=== PATIENT | male | born 1995 | race Two or more races ===

== ENCOUNTER 2017-10-31 09:03 | Emergency (ER) | payer MEDICAID ==
[~2017-10-31] VITALS: Ht 177.8 cm; Wt 108.0 kg
[2017-10-31 09:13] VITALS: BP 148/80
== END 2017-10-31 11:56 | disposition home or self-care (01) ==
LOC: ER 09:03
DX: J02.9 Acute pharyngitis, unspecified (principal)

== ENCOUNTER 2023-03-27 11:57 | Emergency (ER) | payer SELFPAY ==
[~2023-03-27] VITALS: Ht 177.8 cm; Wt 123.4 kg
[2023-03-27 13:54] VITALS: BP 150/91
[2023-03-27 15:17] LABS: Basophils # (auto) 0.1 10 ^3/uL (0-0.2); Basophils % (auto) 0.8 % (0.0-2.0); Eosinophils # (auto) 0.2 10 ^3/uL (0-0.8); Eosinophils % (auto) 2.1 % (0.0-7.0); Hematocrit 47.3 % (41.0-53.0); Hemoglobin 16.9 g/dL (13.5-17.5); Lymphocytes # (auto) 2.4 10 ^3/uL (0.4-5.4); Lymphocytes % (auto) 24.5 % (10.0-50.0); Mean Corpuscular Hemoglobin 29.8 pg (28.0-32.0); Mean Corpuscular Hgb Conc. 35.7 g/dL (32.0-36.0); Mean Corpuscular Volume 83.6 fL (80.0-100.0); Monocytes # (auto) 0.9 10 ^3/uL (0-1.3); Neutrophils # (auto) 6.4 10 ^3/uL (1.6-8.6); Neutrophils % (auto) 63.6 % (37.0-80.0); Nucleated Red Blood Cells % 0.1 %; Red Blood Cells 5.66 10^6/uL (4.5-5.90); Red Cell Distribution Width 12.9 % (11.8-14.3)
[2023-03-27] MEDS ORDERED: AUG875T PO (15:26)
[2023-03-27] MEDS ORDERED: IBUP1TAB5 PO (15:27)
[2023-03-27] MEDS ORDERED: IBUPROFEN 600 MG TAB PO ONE (15:45)
[2023-03-27 15:47] LABS: Albumin 3.9 g/dL (3.4-5.0); Calcium 8.4 mg/dL (8.5-10.1); Potassium 3.6 mmol/L (3.5-5.1)
[2023-03-27 15:50] LABS: BUN/Creatinine Ratio 10.8 (10.0-20.0); Bilirubin, Total 0.4 mg/dL (0.2-1.0); Total Protein 7.6 g/dL (6.4-8.2)
== END 2023-03-27 16:10 | disposition home or self-care (01) ==
LOC: ER 11:57
DX: H66.92 Otitis media, unspecified, left ear (principal); R59.1 Generalized enlarged lymph nodes
CPT/HCPCS: 36415; 70480; 70486; 80053; 85025

== ENCOUNTER 2023-06-12 10:54 | Emergency (ER) | payer SELFPAY ==
[~2023-06-12] VITALS: Ht 177.8 cm; Wt 123.5 kg
[~2023-06-12 10:54] MED LIST: AUG875T PO; IBUP1TAB5 PO
[2023-06-12 11:19] VITALS: BP 151/83; PULSE 85; RESP 18; TEMP 96.5; O2SAT 97
== END 2023-06-12 14:38 | disposition home or self-care (01) ==
LOC: ER 10:54
DX: S93.692A Other sprain of left foot, initial encounter (principal); Z79.1 Long term (current) use of non-steroidal anti-inflammatories (NSAID); Z79.899 Other long term (current) drug therapy; X58.XXXA Exposure to other specified factors, initial encounter; Y93.89 Activity, other specified; Y92.89 Other specified places as the place of occurrence of the external cause; Y99.8 Other external cause status
CPT/HCPCS: 73630